=== PATIENT | female | born 1975 | race Caucasian/White ===

== ENCOUNTER 2017-12-29 21:51 | Emergency (ER) | payer OTHER ==
[2017-12-30 00:59] VITALS: BP 112/84
== END 2017-12-30 01:47 | disposition home or self-care (01) ==
LOC: ED 21:51
DX: S51.011A Laceration without foreign body of right elbow, initial encounter (principal); Z90.89 Acquired absence of other organs; Z91.041 Radiographic dye allergy status; Z88.1 Allergy status to other antibiotic agents; W25.XXXA Contact with sharp glass, initial encounter; Y93.89 Activity, other specified; Y92.89 Other specified places as the place of occurrence of the external cause; Y99.8 Other external cause status
CPT/HCPCS: 90715; J2001